=== PATIENT | female | born 1995 | race Caucasian/White ===

== ENCOUNTER 2017-06-13 20:43 | Emergency (ER) | payer SELFPAY ==
[~2017-06-13] VITALS: Ht 167.6 cm; Wt 90.7 kg
--- OUTSIDE RECORDS SUMMARY | 2017-06-13 20:51 | XMS REPORT ---
Author MIKALA Euceda [facility] eClinicalWorks Address Unknown Phone Unavailable Care Team Providers Care Environmental Property Assessor Name Role Phone MIKALA ARDON CP Unavailable Allergies, Adverse Reactions, Alerts Substance Reaction Event Type Penicillin G Sodium Info Not Available Drug Allergy Problems Problem Type Condition Code Onset Dates Condition Status Assessment Urinary urgency R39.15 Active Assessment Abdominal pain R10.9 Active Medications Medication Code System Code Instructions Start Date End Date Status Dosage Omeprazole [facility] [address]-39 20 MG Orally Once a day Apr 09, 2015 2 capsules Procedures Procedure Coding System Code Date Office Visit, New Pt., Level 3 CPT-4 03022 Apr 09, 2015 URINALYSIS, AUTO, W/O SCOPE CPT-4 38882 Apr 09, 2015 Vital Signs Date/Time: Apr 09, 2015 Temperature 97.9 F BMIPercentile 99.56 % Weight 243.6 lbs Height 66 in BMI 39.31 Index Blood Pressure Diastolic 78 mmHg Blood Pressure Systolic 116 mmHg Cardiac Monitoring Heart Rate 90 bpm Wt Percentile 98.98 % Ht Percentile 10.44 % Results Name Result Date Reference Range Unit Abnormality Flag UA LONG DIP (IN HOUSE) ----TARA Negative 20150409 ----BLO Trace-intact 20150409 ----SG 1.025 20150409 ----KET Negative [id number] ----SUYAPA Negative [id number] ----GLU Negative [id number] ----Protein Negative [id number] ----pH 5.5 20150409 ----NIT Negative [id number] ----URO 0.2 EU./dL [id number] ----Lot # [id number] ----Exp date [id number] ----Clarity Clear [id number] ----Color yellow [id number] Summary Purpose eClinicalWorks Submission
[2017-06-13] MEDS ORDERED: LIDOCAINE 1% INJ 20 ML (XYLOCAINE) VIAL INJ ONE (22:00)
[2017-06-13] MEDS ORDERED: cefTRIAXone 1 GM (ROCEPHIN) VIAL IM ONE (22:00)
[2017-06-13] MEDS ORDERED: LIDOCAINE 2% VISCOUS 15 ML UDC MM ONE (22:00)
[2017-06-13] MEDS ORDERED: AZITHROMYCIN 250 MG TAB (ZITHROMAX) PO SCH (22:00)
[2017-06-13] MEDS ORDERED: ACYCLOVIR 400 MG TABLET (ZOVIRAX) PO SCH (22:00)
--- NOTE | 2017-06-13 22:00 | ED GU-Female ---
General Chief Complaint: -Female Stated Complaint: PAIN IN GROIN AREA,BUMPS Source: patient Exam Limitations: no limitations History of Present Illness Date Seen by Provider: Jun 13, 2017 Time Seen by Provider: 21:55 Initial Comments To ER with reports of vaginal bumps and pain. Patient had intercourse with a new partner on 06/10/17. She states that the condom broke at least once if not twice during that initial night of intercourse. The next morning she awakened with some vaginal discomfort. This morning she awakened with bumps around the vaginal introitus. She also has some whitish vaginal discharge which is unusual for her. She has no history of this. Timing/Duration: this morning, getting worse Severity/Quality: moderate Location: vaginal Radiation: none Activities at Onset: none Prior Genitourinary Problems: none Allergies and Home Medications Allergies Coded Allergies: No Known Drug Allergies (Unverified , 06/13/17) Patient Home Medication List Home Medication List Reviewed: Yes Constitutional: see HPI, No chills, No fever, No malaise EENTM: see HPI Respiratory: no symptoms reported Cardiovascular: no symptoms reported Genitourinary: no symptoms reported Musculoskeletal: no symptoms reported Skin: no symptoms reported Psychiatric/Neurological: No Symptoms Reported Endocrine: No Symptoms Reported Hematologic/Lymphatic: No Symptoms Reported Physical Exam Vital Signs Capillary Refill : General Appearance: WD/WN, no apparent distress HEENT: PERRL/EOMI, normal ENT inspection Neck: full range of motion Cardiovascular: regular rate, rhythm Respiratory: normal breath sounds, no respiratory distress, no accessory muscle use Gastrointestinal: normal bowel sounds, non tender Pelvic: discharge, lesions, other (A pelvic exam is unable to be performed due to the pain. However genitals were inspected externally with Lisette Bernabe) the bedside. Around the labia minora and the vaginal introitus are a multitude of erythematous exquisitely tender small ulcerated lesions. There is a moderate amount of purulent whitish material. A viral culture was collected from the moist ulcerated region of these lesions, genital culture, wet prep swabs were also collected as well as gonorrhea and chlamydia. She'll be treated empirically for gonorrhea and chlamydia as well as herpes.) Extremities: normal range of motion, non-tender Neurologic/Psychiatric: alert, normal mood/affect, oriented x 3 Skin: normal color, warm/dry Progress/Results/Core Measures Suspected Sepsis SIRS Temperature: Pulse: Respiratory Rate: Blood Pressure / Mean: Results/Orders My Orders Orders - JONATHAN CARRERA APRN Virus Culture (06/13/17 21:32) Wet Prep (06/13/17 21:53) Neisseria Gonorrhea Dna (06/13/17 21:53) Chlamydia Dna (06/13/17 21:53) Genital Culture (06/13/17 21:53) Azithromycin Tablet (Zithromax Tablet) (06/13/17 22:00) Ceftriaxone Injection (Rocephin Injectio (06/13/17 22:00) Lidocaine 2% Viscous 15 Ml (Xylocaine Vi (06/13/17 22:00) Acyclovir Capsule/Tablet (Zovirax Caps (06/13/17 22:00) Lidocaine 1% Injection (Xylocaine 1% Inj (06/13/17 22:00) Vital Signs/I&O Capillary Refill : Departure Impression Impression: Primary Impression: Genital herpes Disposition: HOME, SELF-CARE Condition: Stable Departure-Patient Inst. Decision time for Depature: 21:59 Referrals: NO,LOCAL PHYSICIAN (PCP/Family) Primary Care Physician Patient Instructions: Genital Herpes Add. Discharge Instructions: Follow-up with your physician Next week. Call on Thursday to make an appointment to be seen. If you do not have one a list has been provided for you. Take the medication as directed. Apply any topical lidocaine as needed for pain control. All discharge instructions reviewed with patient and/or family. Voiced understanding. Scripts Acyclovir (Acyclovir) 400 Mg Tablet 400 MG PO TID for 7 Days, TAB Prov: JONATHAN CARRERA APRN 06/13/17 Work/School Note: Local Medical Staff Listing JONATHAN CARRERA APRN Jun 13, 2017 22:00
[2017-06-13] MEDS ORDERED: ACYC400T PO (22:01)
[2017-06-13] MEDS ORDERED: LIDOCAINE 1% INJ 50 ML (XYLOCAINE) VIAL ONE (22:17)
[2017-06-13] MEDS ORDERED: METR500T PO (23:08)
[2017-06-13 23:16] VITALS: BP 0/0
== END 2017-06-13 23:16 | disposition home or self-care (01) ==
LOC: ER 20:48
DX: A60.00 Herpesviral infection of urogenital system, unspecified (principal)
CPT/HCPCS: 36415; 87070; 87210; 87252; 87491; 87591; 96372; 99284